=== PATIENT | female | born 1995 | race Caucasian/White ===

== ENCOUNTER 2017-11-30 14:23 | Emergency (ER) | payer SELFPAY ==
[2017-11-30 15:00] VITALS: BP 121/67
--- NOTE | 2017-11-30 15:04 | UC ---
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 Tried Claritin and lubricant eye drops without improvement. Here with employers - History of Current Complaint Stated Complaint: SINUSES Time Seen by Provider: 11/30/17 14:50 Hx Obtained From: Patient, Mica Builder ?: No Onset/Duration: Gradual Onset, Lasting Days, Still Present Timing: Constant Severity Initially: Moderate Severity Currently: Moderate Aggravating Factors: Allergens Associated Signs And Symptoms: Positive: Negative - Allergies/Home Medications Allergies/Adverse Reactions: Allergies Allergy/AdvReac Type Severity Reaction Status Date / Time No Known Allergies Allergy Verified 11/30/17 14:49 Home Medications: Home Medications RX: Loratadine 10 mg PO DAILY 11/30/17 [History Confirmed 11/30/17] PMH/Surg Hx/FS Hx/Imm Hx - Additional Past Medical History Additional PMH: none Previously Healthy: Yes Review of Systems Constitutional: Negative Skin: Negative Eyes: Negative ENT: Sore Throat, Ear Ache, Sinus Pain/Tenderness Respiratory: Negative Cardiovascular: Negative Gastrointestinal: Negative Genitourinary: Negative Motor: Negative Neurovascular: Negative Musculoskeletal: Negative Neurological: Negative Psychological: Negative All Other Systems Reviewed And Are Negative: Yes Physical Exam Triage Information Reviewed: Yes Eye Exam: Normal ENT: Positive: Pharynx normal, TM red, Sinus tenderness - B/L maxillary Dental Exam: Normal Neck exam: Normal Neck: Positive: Tenderness @ - B/L posterior LAD Respiratory Exam: Normal Cardiovascular Exam: Normal Abdominal Exam: Normal Musculoskeletal Exam: Normal Neurological Exam: Normal Psychological Exam: Normal Skin Exam: Normal Respiratory Course/Dx - Differential Dx/Diagnosis Provider Diagnoses: sinus infection. B/L OM Discharge - Sign-Out/Discharge Documenting (check all that apply): Discharge/Admit/Transfer - Discharge Plan Condition: Stable Disposition: HOME Prescriptions: Amoxicillin/Clavulanate TAB* [Augmentin TAB 875*] 875 mg PO BID 7 Days #14 tab Patient Education Materials: Sinusitis (ED), Ear Infection (ED) Print Language: NORTHERN IRISH Referrals: Non Staff,Doctor [Primary Care Provider] - - Billing Disposition and Condition Condition: STABLE Disposition: HOME
== END 2017-11-30 15:32 | disposition home or self-care (01) ==
LOC: UCCORT 14:23
DX: J32.9 Chronic sinusitis, unspecified (principal); H66.93 Otitis media, unspecified, bilateral
CPT/HCPCS: 99212; G0463

== ENCOUNTER 2023-04-20 03:26 | Inpatient (IN) ==
[2023-04-20] MEDS ORDERED: Lidocaine 1% VIAL 10 MG/ML 30 ML VIAL INJ PRN (04:45)
[2023-04-20] MEDS ORDERED: Lactated Ringers 1000 ml BAG 1,000 ML IV ONE (04:45)
[2023-04-20] MEDS ORDERED: Buffered Lidocaine 1% SYRIN 1 ml INTRADERM ONE (04:45)
[2023-04-20 06:31] LABS: Urine Benzodiazepine Screen None Detected (None Detect); Urine Cannabinoids Screen None Detected (None Detect); Urine Opiates Screen None Detected (None Detect)
[2023-04-20] MEDS: Lactated Ringers 1000 ml BAG 1,000 ML IV SCH ×3 (12:17→22:56)
[2023-04-20 12:21] LABS: ABS Basophils 0.1 10^3/uL (0.0-0.1); ABS Eosinophils 0.2 10^3/uL (0.0-0.5); ABS Lymphocytes 2.8 10^3/uL (1.0-4.8); ABS Monocytes 0.8 10^3/uL (0.0-0.9); ABS Nucleated RBC 0.04 10^3/ul; Eosinophil % 2.3 %; Hematocrit 35.3 % (35-45); Hemoglobin 12.4 g/dL (11.5-14.3); Lymphocyte % 31.2 %; Mean Corpuscular Hemoglobin 34.7 pg (27-33); Mean Corpuscular Hgb Conc 35.1 g/dL (31-36); Mean Corpuscular Volume 98.8 fL (80-97); Mean Platelet Volume 11.9 fL (7.5-11.2); Nucleated Red Blood Cells % 0.5 %/100WBC (0.0-0.8); Platelet Count 143 10^3/uL (150-450); Red Blood Count 3.57 10^6/uL (3.63-4.92); Red Cell Distribution Width 13.7 % (12-17); White Blood Count 8.8 10^3/uL (3.8-11.8)
[2023-04-20] MEDS ORDERED: Oxytocin in LR 20,000 MILLI.UNIT/1,000 ML BAG IV SCH (12:25)
[2023-04-20] MEDS ORDERED: Promethazine INJ(RESTRICTED) 25 MG/ML 1 ml VIAL IV ONE (23:08)
[2023-04-21] MEDS ORDERED: OBEPIDURAL (200 ML) 200 ML EPIDURAL ONE (04:54)
[2023-04-21] MEDS ORDERED: Lidocaine 1.5% EPI 1:200,000 30 ML SDV ONE (04:54)
[2023-04-21] MEDS ORDERED: fentaNYL 100 mcg/2 ml 50 MCG/ML VIAL ONE (05:02)
[2023-04-21] MEDS ORDERED: Lactated Ringers 1000 ml BAG 1,000 ML IV ONE (05:06)
[2023-04-21] MEDS ORDERED: Sodium Citrate/Citric Acid LIQ 15 ML UDC PO PRN (05:06)
[2023-04-21] MEDS ORDERED: Phenylephrine 40 mcg/mL 10mL (400mcg) SYRINGE IV PUSH PRN ×2 (05:06)
[2023-04-21] MEDS: OBEPIDURAL (200 ML) 200 ML EPIDURAL SCH ×2 (05:30→17:46)
[2023-04-21 06:30] LABS: Urine Appearance Cloudy; Urine Bilirubin Negative (Negative); Urine Blood 2+ (Negative); Urine Color Yellow; Urine Glucose Negative (Negative); Urine Ketones Negative (Negative); Urine Nitrite Negative (Negative); Urine Protein Negative (Negative); Urine Specific Gravity 1.006 (1.002-1.030); Urine Urobilinogen Negative (Negative)
[2023-04-21 07:12] LABS: Urine Bacteria Absent (Absent); Urine Red Blood Cell 2+(6-10/hpf) (Absent); Urine Renal Epithelial Cells Present (Absent); Urine Squamous Epithelial Cell Present (Absent); Urine Transitional Epithelial Present (Absent); Urine White Blood Cell Trace(0-5/hpf) (Absent)
[2023-04-21] MEDS ORDERED: Oxytocin in LR 20,000 MILLI.UNIT/1,000 ML BAG IV SCH (07:20)
[2023-04-21] MEDS: Lactated Ringers 1000 ml BAG 1,000 ML IV SCH ×2 (11:41→17:08)
[2023-04-21] MEDS ORDERED: Calcium Carb (TUMS) 500 mg CHEW TAB PO ONE (13:35)
[2023-04-21 14:33] LABS: Calcium 8.3 mg/dL (8.6-10.3); Potassium 3.5 mmol/L (3.5-5.0); Total Bilirubin 0.6 mg/dL (0.2-1.0)
[2023-04-21 14:38] LABS: Albumin/Globulin Ratio 1.2 (1-3); Creatinine, Serum 0.75 mg/dL (0.51-0.95); Globulin 2.6 g/dL (2-4); Total Protein 5.6 g/dL (6.4-8.9); Uric Acid 5.3 mg/dL (2.3-6.6); eGFR CKD-EPI 112.5 (>60)
[2023-04-21 14:39] LABS: Urine Creatinine Concentration 19.22 mg/dL (20.00-320.00); Urine TP Creat Ratio 1.09 mg/mg
[2023-04-21 14:54] LABS: ABS Basophils 0.1 10^3/uL (0.0-0.1); ABS Eosinophils 0.1 10^3/uL (0.0-0.5); ABS Lymphocytes 2.1 10^3/uL (1.0-4.8); ABS Monocytes 0.9 10^3/uL (0.0-0.9); ABS Neutrophils 8.3 10^3/uL (1.5-7.6); ABS Nucleated RBC 0.02 10^3/ul; Eosinophil % 0.6 %; Hematocrit 35.3 % (35-45); Hemoglobin 12.2 g/dL (11.5-14.3); Lymphocyte % 18.5 %; Mean Corpuscular Hemoglobin 34.4 pg (27-33); Mean Corpuscular Hgb Conc 34.6 g/dL (31-36); Mean Corpuscular Volume 99.3 fL (80-97); Nucleated Red Blood Cells % 0.1 %/100WBC (0.0-0.8); Platelet Count 122 10^3/uL (150-450); Red Blood Count 3.56 10^6/uL (3.63-4.92); Red Cell Distribution Width 13.3 % (12-17); White Blood Count 11.4 10^3/uL (3.8-11.8)
[2023-04-21] MEDS ORDERED: Bupivacaine 0.25% SDV PF 10 ML VIAL INJ ONE (17:39)
[2023-04-21] MEDS ORDERED: ceFOXitin 2 GM IVPREMIX 2 GM/50 ML BAG IVPB ONE (19:19)
[2023-04-21] MEDS ORDERED: Lidocaine 2% w/ EPI 1:200,000 MPF 20 ML SDV VIAL ONE (19:41)
[2023-04-21] MEDS ORDERED: Ondansetron 4 mg VIAL 2 MG/ML 2 ml VIAL ONE ×2 (20:04→21:49)
[2023-04-21] MEDS ORDERED: Oxytocin 10 UNITS/ML 1 ML VIAL ONE (20:04)
[2023-04-21] MEDS ORDERED: Morphine PF AMP (0.5MG/ML) 5 MG/10 ML AMP ONE (20:32)
[2023-04-21] MEDS ORDERED: Bupivacaine 0.25% w/EPI 10 ML SDV ONE (20:38)
[2023-04-21] MEDS ORDERED: KETAMINE HCL 10 MG/ML 20 ml VIAL (200 MG) ONE (20:52)
[2023-04-21] MEDS ORDERED: Midazolam 2 mg/2 ml VIAL 1 mg/ml 2 ml VIAL (2 mg) ONE (20:52)
[2023-04-21] MEDS ORDERED: Acetaminophen IV 1 GM/100ML 1,000 MG/100 ML BAG IV ONE (21:06)
[2023-04-21] MEDS ORDERED: Acetaminophen IV 1 GM/100ML 1,000 MG/100 ML BAG IV PRN (21:35)
[2023-04-21] MEDS ORDERED: Naloxone 0.4 mg VIAL 0.4 mg/ml 1 ml VIAL IV PUSH PRN (21:35)
[2023-04-21] MEDS ORDERED: Ondansetron 4 mg VIAL 2 MG/ML 2 ml VIAL IV PRN (21:35)
[2023-04-21] MEDS ORDERED: Metoclopramide 5 MG/ML VIAL (10 mg) IV PRN (21:35)
[2023-04-21] MEDS ORDERED: Dexamethasone IV 4 MG/ML VIAL 1 ml VIAL ONE (21:49)
[2023-04-22] MEDS ORDERED: Influenza vaccine *QUAD* *2023-24* 0.5 ML SYRINGE IM ONE (09:00)
[2023-04-22] MEDS ORDERED: Glycerin ADULT 2.4 gm SUPP PR PRN (12:54)
[2023-04-22] MEDS ORDERED: Witch Hazel PAD JAR TOPICAL PRN (12:54)
[2023-04-22] MEDS ORDERED: Lactated Ringers 1000 ml BAG 1,000 ML IV SCH (13:00)
[2023-04-22 16:33] LABS: Hematocrit 27.5 % (35-45); Hemoglobin 9.5 g/dL (11.5-14.3); Mean Corpuscular Hemoglobin 34.4 pg (27-33); Mean Corpuscular Hgb Conc 34.7 g/dL (31-36); Mean Corpuscular Volume 99.1 fL (80-97); Mean Platelet Volume 10.9 fL (7.5-11.2); Platelet Count 127 10^3/uL (150-450); Red Blood Count 2.78 10^6/uL (3.63-4.92); Red Cell Distribution Width 13.7 % (12-17); White Blood Count 16.2 10^3/uL (3.8-11.8)
[2023-04-24 08:46] VITALS: BP 110/72
== END 2023-04-24 15:15 | disposition home or self-care (01) | DRG 540 ==
LOC: MCHOBOUT 03:26 → MCHOB 04:22
PROVIDERS: ADMIT Midwife; ATTEND Midwife